=== PATIENT | male | born 1965 ===

== ENCOUNTER → 2025-03-27 09:33 | Outpatient (REF) | payer OTHER, SELFPAY ==
--- OUTSIDE RECORDS SUMMARY | 2025-01-21 09:00 | XMS_ITS ---
Author Name [facility] [facility] [place] Address [address] [place] [address] Care Team Providers Care Bar Manager Name Role Phone CARMEN KAMARA Primary Care Provider Unavailable Insurance Providers: All historical and current Section Date Range: From patient's date of to the date document was created. This section includes the names of all active insurance providers for the patient. Insurance Provider Type of Coverage Plan Name Start of Policy Coverage End of Policy Coverage Group Number Member ID Insurance Provider's Telephone Number Policy Ash's Name Patient's Relationship to Policy Ash [facility] CE ORGANIZAT ION [facility] Dec 04, 2024 [id number] Genia NATARAJAN EORGE PATIENT Selected Encounter This section includes the information on record at [place] for the Encounter. Date/Time Encounter Type Encounter Description Reason Provider Source January 21, 2025 01:00 PM OFFICE O/P NEW [place] 60 MIN PRIMARY CARE/MEDICINE ICD-10-CM R06.00 Dyspnea, unspecified CARMEN KAMARA [facility] Encounter Template Text not used by [place] Assessments - Encounter Diagnoses This section includes the primary and secondary diagnoses documented for the Encounter. Date/Time Primary/Secondary Diagnosis Diagnosis Name Provider Source January 22, 2025 08:54 AM PRIMARY Dyspnea, unspecified BROOKS-BRENDA [facility] January 22, 2025 08:54 AM SECONDARY Athscl heart disease of [place] coronary artery w/o ang pctrs [facility] January 22, 2025 08:54 AM SECONDARY [facility]izziness and g[facility] January 22, 2025 08:54 AM SECONDARY Essential (primary) hypertension [facility] January 22, 2025 08:54 AM SECONDARY Hyperlipidemia, unspecified BROOKS-BRENDA ,[facility] January 22, 2025 08:54 AM SECONDARY Hypertensive heart disease without heart failure BROOKS-BRENDA [facility] Plan of Treatment: Future Appointments (+ 6 months) and Future Tests (+/- 45 days) The Plan of Treatment section includes future care activities for the patient from all [facility]. This section includes future appointments and future orders which are active, pending or scheduled. Future Appointments This section includes appointments that were scheduled to occur 6 months from the date of the Encounter, up to a maximum of 20 appointments. The data comes from all [facility]. Appointment Date/Time Appointment Type Appointme nt Facility Name Feb 25, 2025 09:00 AM AMBULATORY - MEDICINE [facility] Active, Pending, and Scheduled Orders This section includes a listing of several types of active, pending, and scheduled orders, including clinic medications orders, diagnostic test orders, procedure orders and consult orders; where the start date of the order is 45 days before the date of the Encounter or 45 days after the date of theEncounter. The data comes from all [facility]. Test Date/Time Test Type Test Details Facility Name Feb 09, 2025 05:23 PM Consult Order COMM[facility]ITY CARE-CARDIOLOGY Cons Windshield Repair Technician's Choice [facility] Lab Results: +/- 30 days of the encounter This section includes the Chemistry and Hematology Lab Results on record with [place] for the patient. Radiology Reports and Pathology Reports are provided separately, in subsequent sections. Lab Results This section contains the Chemistry/Hematology Results that were resulted 30 days before or 30 daysafter the date of the Encounter. Date/Time Source Result Type Result - Unit Interpretation Reference Range Specimen Type Comment January 21, 2025 03:12 PM [facility] BASIC METABOLIC PANEL (non-fasting) SERUM Spe cimen Type: SERUM No comment entered. Ordering Provider: CARMEN KAMARA Report Released Date/Time: January 21, 2025 02:34 PM Reporting Lab: [address] [address] Performing Lab: [address] [address] UREA NITROGEN 10 mg/dL 8-26 GLUCOSE 80 mg/dL 65-100 SODIUM 138 mmol/L 136-145 POTASSIUM 4.4 mmol/L 3.5-5.1 CHLORIDE 101 mmol/L 98-107 CO2 26 meq/L 22-29 CALCIUM 9.4 mg/dL 8.4-10.2 CREATININE, Serum 1.01 mg/dL 0.72-1.25 eGFR(CKD-EPI 2020) 86 mL/min >60 January 21, 2025 03:12 PM [facility] CBC AND DIFF (AUTO) BLOOD Specimen Type: BLOO D No comment entered. Ordering Provider: CARMEN KAMARA Report Released Date/Time: January 21, 2025 02:34 PM Reporting Lab: [facility] [address] [facility] [address] Performing Lab: [address] [address] WBC 7.58 10*3/uL 4.50-11.00 RBC 5.39 10*6/uL 4.23-5.66 HGB 16.3 g/dL 12.8-17 HCT 47.7 39.2-50.4 MCV 88.5 fL 82-99 MCHC 34.2 g/dL 30.8-35.1 PLT 306 10*3/uL 140-360 MPV 8.8 fL L 9.2-12.4 RDW-CV 13.2 12.0-16.0 MONO, ABS 0.63 10*3/uL 0.30-1.10 MCH 30.2 pg 26.2-32.6 NEUT % 53.7 43.7-75.8 LYMPH % 35.4 14.0-42.3 MONO % 8.3 5.1-13.7 EOS % 1.8 0.4-6.8 BASO % 0.5 0.1-2.0 NEUT, ABS 4.07 10*3/uL 2.20-7.60 LYMPH, ABS 2.68 10*3/uL 1.00-3.20 EOS, ABS 0.14 10*3/uL 0.03-0.44 BASO, ABS 0.04 10*3/uL 0.01-0.13 IMMATURE GRAN % 0.3 0.0-0.7 IMMATURE GRAN, ABS 0.02 10*3/uL 0.00-0.0 6 NRBC % 0.0 0.0-0.0 NRBC, ABS 0.00 10*3/uL 0.00-0.00 January 21, 2025 03:12 PM [facility] LIVER FUNCTION SERUM Specimen Type: SERUM No comment entered. Ordering Provider: CARMEN KAMARA Report Released Date/Time: January 21, 2025 02:34 PM Reporting Lab: [address] [address] Performing Lab: [address] [address] PROTEIN,TOTAL 8.0 g/dL 6.4-8.3 ALBUMIN 4.9 g/dL 3.5-5.2 ALKALINE PHOSPHATASE 89 U/L 40-150 AST 28 U/L 5-34 ALT 46 U/L 0-55 BILIRUBIN, TOTAL 0.6 mg/dL 0.2-1.2 January 21, 2025 03:12 PM [facility] LIPID PANEL, NON FASTING SERUM Specimen Type: SERUM No comment entered. Ordering Provider: CARMEN KAMARA Report Released Date/Time: January 21, 2025 02:34 PM Reporting Lab: [facility] [address] [facility] [address] Performing Lab: [address] [address] CHOLESTEROL 175 mg/dL TRIGLYCERIDE 68 mg/dL 0-150 LDL calculated 123 mg/dL 0-129 CHOL/HDL 4.6 HDL CHOLESTEROL 38 mg/dL L >40 January 21, 2025 03:12 PM [facility] TSH SERUM Specimen Type: SERUM No comment entered. Ordering Provider: CARMEN KAMARA Report Released Date/Time: January 21, 2025 02:34 PM Reporting Lab: [facility] [address] [facility] [address] Performing Lab: [address] [address] TSH 1.02 u[IU]/mL 0.35-4.94 January 21, 2025 03:12 PM [facility] HEMOGLOBIN A1C PANEL BLOOD Specimen Type: BLO OD Comment: Values obtained from A1C measurements can vary. For atypical A1C assays, a reported value of 7.0 could actually be between 6.72 and 7.28 if measured by a reference method. A reported value of 9.0 could actually be between 8.73 and 9.27. Ref: http://www.ngsp.org/CAPdata.asp Ordering Provider: CARMEN KAMARA Report Released Date/Time: January 21, 2025 02:34 PM Reporting Lab: [facility] [address] [facility] [address] Performing Lab: [address] [address] HEMOGLOBIN A1C 5.6 4.0-5.6 Vital Signs: All taken on the encounter date This section contains inpatient and outpatient Vital Signs collected on the date of the Encounter. Date/Time Temperature Pulse Blood Pressure Respiratory Rate SP02 Pain Height Weight Body Mass Index Source January 21, 2025 12:35 PM 97.8 59 148/85 20 99 3 192 28 [facility] Social History: Smoking Status (Most current) and Tobacco Use (All prior to encounter date) This section includes the most current, and the historical, smoking and tobacco- related health factors from the [place] facility where the Encounter took place. Current Smoking Status This section includes the most current smoking, or tobacco-related health factor, from the [place] facility where the Encounter took place. Date/Time Current Smoking Status Comment Facil ity January 20, 2025 02:34 PM VA-TOBACCO USE FOR [facility]ST[facility]NA CIGARETTES [facility] Tobacco Use History This section includes a history of the smoking, or tobacco-related health factors, that were collected on or before the date of the Encounter. The data comes from the [place] facility where the Encounter took place. Date/Time Smoking Status/Tobacco Use Comment F acility January 20, 2025 02:34 PM VA-TOBACCO SCREEN FOLLOW-UP [facility] [place] [facility] January 20, 2025 02:34 PM VA-TOBACCO USE ADVICE [facility] [place] [facility] January 20, 2025 02:34 PM VA-TOBACCO USE MINE SURVEYOR NO [facility] [place] [facility] January 20, 2025 02:34 PM VA-TOBACCO USE FOR CRISTIANA CIGARETTES [facility] [place] [facility] January 20, 2025 02:34 PM VA-TOBACCO USE MED NO [facility] [place] [facility] Jul 07, 2020 09:00 AM VA-TOBACCO FORMER USER [facility] [place] [facility] Jul 07, 2020 09:00 AM VA-TOBACCO QUIT 5 TO < 15 YRS [facility] [place] [facility] Jul 04, 2019 12:10 PM VA-TOBACCO FORMER USER [facility] [place] [facility] Jul 04, 2019 12:10 PM VA-TOBACCO QUIT 1 TO < 5 YRS [facility] [place] [facility] May 07, 2018 08:28 AM QUIT TOBACCO USE 1 -7 YEARS AGO [facility] [place] [facility] Oct 23, 2017 08:50 AM QUIT TOBACCO USE 1 -7 YEARS AGO [facility] [place] [facility] Apr 20, 2017 09:16 AM QUIT TOBACCO USE 1 -7 YEARS AGO [facility] [place] [facility] Jul 20, 2016 11:07 AM QUIT TOBACCO USE 1 -7 YEARS AGO [facility] [employer] Encounter Notes: All associated encounter notes This section contains the clinical notes associated to the Encounter. Date/Time Encounter Note(s) Provider Source January 22, 2025 12:50 PM LETTERS: LOCAL TITLE: PATIENT LETTER (T) STANDARD TITLE: LETTERS DATE OF NOTE: JANUARY 22, 2025@12:50 ENTRY DATE: JANUARY 22, 2025@12:50:37 AUTHOR: MARY KAMARA COSIGNER: URGENCY: STATUS: COMPLETED DEPARTMENT OF [facility] Toll Free Number Primary Care Telephone Assistance can be reached at extension [phone] [facility] scheduling can be reached at extension [phone] [facility] scheduling can be reached at ext [phone] [facility] [address], [place], [address] Dear , This letter is to inform you that your recent lab results have returned overall within normal limits. Your CBC (complete blood count) shows no anemia or abnromalities. Your electrolytes, kidney, and liver function is normal. Your thyroid function is in normal range. Your cholesterol shows that your LDL ( bad cholesterol ) is 123. The goal for your LDL is less than 70. Please ensure that you are taking your atorvastatin 80 mg daily as directed. IF YOU ARE taking it consistently, I would recommend switching you to another, higher potency statin instead. We can discuss further at your next appt in February Please call for any questions or problems and keep your next appointment, as scheduled. Carmen Kamara PA-C Sincerely, Your Primary Care Team [facility] [address] [facility] [address] [place] [address] [place] [address] [phone] [facility] [address] [place] [address] [place] [address] [phone] [facility] [address] [facility] [place] [id number] [place] [address] MARY KAMARA [facility] January 21, 2025 03:20 PM CARDIOLOGY DIAGNOSTIC STUDY CONSULT: LOCAL TITLE: CONSULT REPORT/EKG STANDARD TITLE: CARDIOLOGY DIAGNOSTIC STUDY CONSULT DATE OF NOTE: JANUARY 21, 2025@15:20 ENTRY DATE: JANUARY 21, 2025@15:20:27 AUTHOR: MIQUEL RAMÍREZ EXP COSIGNER: URGENCY: STATUS: COMPLETED EKG tracing was performed for diagnosis of Shortness of breath ordered by Carmen Kamara PA-C. /krystian/ MIQUEL RAMÍREZ, MSN, RN, CNL PRIMARY CARE TEAM NURSE Signed: 01/21/2025 15:21 MIQUEL RAMÍREZ [facility] January 21, 2025 01:30 PM H & P NOTE: LOCAL TITLE: 10-10/PHYSICIAN/PA STANDARD TITLE: H & P NOTE DATE OF NOTE: JANUARY 21, 2025@13:30 ENTRY DATE: JANUARY 21, 2025@13:30:17 AUTHOR: MARY KAMARA EXP COSIGNER: URGENCY: STATUS: COMPLETED DEISY NATARAJAN is a 59 year old WHITE MALE who is being seen today in primary care: NEW PATIENT ==== CARE TEAM ==== Community Primary Care Provider: [facility] Specialists: Community Specialists: ==== HISTORY ==== PERIOD OF SERVICE - [place] [facility] SERVICE CONNECTED % - NONE FOUND Period of Service: [employer] Branch of Service: [facility] 03/24/1989 TO 07/26/1996 [employer] 06/28/1984 TO 07/02/1988 ==== HISTORY OF PRESENT ILLNESS ==== Patient presents today to establish care. 59 yo M with known CAD, HTN, HLD, ED, renal stones, & cervical DJD. DJD. No physical in several years. Prev pt at [facility]. Last labs done 2? yrs ago and worried about his heart dz. No Cards fu in years. -concerns: dizziness/vertigo, sometimes assoc with nausea; seen at [facility] and has had cerumen flushed; now doing this at home. Recently had an episode of nausea that persisted. episodes are transient . IN past few weeks, felt more SOB with normal exertion and going up stairs. More easily winded. Never has chest pain. Sxs resolve with rest. No syncope or palps. Started checking BP at home a few times, typically 150s/80-90s. HTN initally found during workup for angina about 10 yrs ago. [facility] in [place]: Cardiac catheterization done 2015; found no obstr coronary disease. Last saw Cardiol here at [place] in Oct 2017. CARDIAC HX: 2016 had chest pain, Coronary CT 12/2015 : extensive obstr two vessel (LAD, RCA) and textensive coronary atherosclerosis. TTE was normal . Started on ASA, hi intens statin and BB. And tingling in the arms Has had PT for L shoulder in the past. Has some aching and numbness in both arms. Trggered by flexion of neck. Relieved by movement. No weakness or dropping spells. denies: signif loss/gain in weight, chills, severe fatigue, difficulty swallowing, ear pain, cough, syncope, chest pain, palpiations, WADE, abdominal pain, new urinary or bowel changes, new rashes or skin lesions. ==== RELEVANT PAST MEDICAL HISTORY ==== Active problems - Computerized Problem List is the source for the followin. Ureterolithiasis 2. Erectile dysfunction 3. Hyperlipidemia 4. Cervical spondylosis with radiculopathy 5. Low back pain 6. Neck ache 7. Adjustment disorder with depressed mood 8. Polyp of colon biopsy showed polypoid fragment with small benign lymphoid aggregates 9. Coronary artery disease 10. BP - High blood pressure uncontrolled - for self-monitoring 11. Dyslipidemia ==== PAST SURGICAL HISTORY ==== None ==== FAMILY HISTORY ==== Mother: D estranged, (hx IVDU) Father: DM2 PGF: CVA Siblings: ==== SOCIAL HISTORY ==== Background: born and raised in [place] Marital Status: Children: biol sons, 2 step dtr Lives with: and stepdtr Employment Status: Manufacturing/ [place] Alcohol Use: rare Tobacco Use: former cigs (25 pack yr); quit 2015 Drug Use: MJ, daily Mobility: Full Exercise: active, no recent formal exercise ==== ALLERGIES ==== [facility] [place] [facility] ==== MEDICATIONS ==== ==== REVIEW OF SYMPTOMS ==== see HPI ==== PHYSICAL EXAM ==== Vitals: 97.8 F [36.6 C] (01/21/2025 12:35) 59 (01/21/2025 12:35) 20 (01/21/2025 12:35) 148/85 (01/21/2025 12:35) 3 (01/21/2025 12:35) 69 in [175.3 cm] (11/04/2018 09:17) 192 lb [87.09 kg] (01/21/2025 12:35) BMI: 28.4 Exam: Gen.: Alert, no acute distress, sitting comfortably. Eyes: Noninjected. No facial swelling or asymmetry. No icterus. HEENT: Normocephalic, atraumatic. No nasal drainage. Hearing grossly intact Neck: Good range of motion/No masses CV: RRR, No Murmurs. No carotid bruits. No LE Edema Respiratory: No conversational dyspnea. No audible wheezing stridor or cough. Skin: No obvious rashes. Neuro: Cranial nerves II-XII grossly intact Psych: Normal affect, cooperative. Intact judgment and insight. A&O x3. ==== RECENT LABS ==== Labs: = HEMOGLOBIN A1C TREND No data available = CBC TREND Collection DT Spec WBC RBC HGB HCT MCV MCH PLT 07/17/2019 13:59 BLOOD 7.75 5.33 16.1 48.1 90.2 30.2 359 10/29/2018 08:03 BLOOD 8.13 5.28 15.8 47.6 90.2 29.9 359 10/05/2017 08:07 BLOOD 7.48 5.05 15.0 45.3 89.7 29.7 329 01/17/2017 09:33 BLOOD 7.19 5.17 15.2 46.2 89.4 29.4 308 08/02/2016 08:45 BLOOD 7.17 5.27 15.5 46.5 88.2 29.4 315 = CHEM 7 TREND LAB CUMULATIVE SELECTED Collection DT Spec GLUCOSE BUN CREATIN Sodium K+/Pot CL CO2 07/17/2019 13:59 SERUM 86 9 1.05 140 4.5 104 29 10/29/2018 08:03 SERUM 102 H 9 0.97 142 4.7 103 30 10/05/2017 08:07 SERUM 99 12 1.03 141 4.8 106 27 01/17/2017 09:33 SERUM 107 H 11 0.95 143 4.9 105 29 08/02/2016 08:45 SERUM 98 10 0.93 140 4.7 106 27 LAB CUMULATIVE SELECTED 2 No selection items chosen for this component. CHEM 7 Results Collection DT Spec Sodium K+/Pot CL CO2 GLUCOSE BUN 07/17/2019 13:59 SERUM 140 4.5 104 29 86 9 10/29/2018 08:03 SERUM 142 4.7 103 30 102 H 9 10/05/2017 08:07 SERUM 141 4.8 106 27 99 12 01/17/2017 09:33 SERUM 143 4.9 105 29 107 H 11 08/02/2016 08:45 SERUM 140 4.7 106 27 98 10 = LIPID PANEL TREND Collection DT Spec CHOL HDL CHO/HDL LDL-c TRIG 07/17/2019 13:59 SERUM 174 40 4.4 124 50 10/29/2018 08:03 SERUM 165 36 L 4.6 116 63 10/05/2017 08:07 SERUM 140 30 L 4.7 93 83 01/17/2017 09:33 SERUM 138 34 L 4.1 86 92 08/02/2016 08:45 SERUM 152 34 L 4.5 100 92 = = THYROID PANEL Collection DT Specimen Test Name Result Units Ref Range 10/05/2017 08:07 SERUM TSH 1.55 uIU/mL 0.35 - 5.00 = PSA No data available for: PSA = SrCr (last 6 weeks): CREATININE-EGFR - NONE FOUND CRCL IBW: CrCl(est): 76.7 mL/min (Creat:1.05 07/17/19) CRCL ACT: No Creat CRCL ADJ: 76.7 mL/min (07/17/19) \ ==== ASSESSMENT AND PLAN ==== Recent dyspnea on exertion: atypical for him. Hx CAD. reports he IS taking ASA 81 mg daily; will add to med list. No cards FU since 2018 EKG: no acute ST-T changes. Refer for EST. Will need FU with Cards after. Red flags to seek ED eval reviewed, vet. agrees Labs today HTN: NOT at goal. Is resistant to increasing lisinopril Rec short term FU 6-8 wks, will stress importance of tight BP control. FU 6-8 wks , will likely need additional meds Paresthesias of UE's: related to neck position Declines PT for now, helpful in past, but short term. Vertigo: comes and goes; has meclizine and ondansetron to use PRN. Discussed nature of inner ear dz Cerumen impaction: LEFT ear He will use softening drops and try flushing at home. On this date of the encounter, I spent 60 minutes on some or all of the following: chart review, history, physical examination, treatment planning, education and counseling of the patient/family/customer care voice consultant, placing orders, communicating with other health care providers and documentation in the electronic health record. ==== HEALTH MAINTENANCE ==== Colonoscopy : Polyp of colon - [facility]- 2021 Tetanus: Pneumonia Vaccine: Flu Vaccine: due yearly Covid Vaccine: due yearly ==== FOLLOW UP ==== VISIT TYPE: FU, review EST, HTN Upcoming Appointments: /krystian/ CARMEN KAMARA PA-C PA-C Signed: 01/22/2025 08:54 MARY KAMARA CNTRDanae [facility]
--- NOTE | ~2025-03-27 | NM_ITS ---
EXERCISE MYOCARDIAL PERFUSION STUDY INDICATION: Shortness of breath. Prior CAD to evaluate for myocardial ischemia TECHNIQUE: The patient was brought in for an exercise perfusion study on 03/27/2025. Patient performed exercise as per Nikita protocol and was injected 25 mCi of sestamibi once target heart rate was achieved. Images were obtained using the SPECT gamma camera interlaced with the gating device. Images were obtained in supine position. Resting perfusion study was performed on 03/30/2025. Patient was administered 25 mCi of sestamibi intravenously at rest. Images were then obtained in supine position. Images obtained without without CT attenuation. Total DLP 86 mGy-cm. Images were processed with the software and compared side to side in short axis, horizontal long axis and vertical long axis views. FINDINGS: Raw images were reviewed The stress perfusion study showed nonattenuated images show normal uptake of radiotracer in all segments of the LV myocardium. Attenuated corrected images show thinning of the apex of the LV myocardium.. The gated study shows normal LV systolic function with calculated LVEF of 55%. LV cavity is mildly dilated in size. The gated study shows normal systolic wall thickening and contraction of segments. Resting images was suboptimal due to intense subdiaphragmatic uptake interfering with inferior wall uptake. Resting study shows nonattenuated images show mildly reduced uptake in the basal and mid inferior as well as the apex of the LV myocardium. Attenuated corrected images show moderately reduced uptake in the apex and mildly reduced uptake in the distal anterior wall of the LV myocardium. Gating at rest reveals normal systolic wall motion with ejection fraction at 63%. The findings are consistent with normal myocardial perfusion on stress images. NM/NM peri perf SPECT rest & str IMPRESSION: 1. Myocardial perfusion imaging study shows normal myocardial perfusion. 2. Gated LVEF is 55%. 3. Transient ischemic dilatation not present. EKG revealed negative for ischemia. Electronically signed by: Danny Edwards MD 03/31/2025 10:53 AM EDT
--- NOTE | 2025-03-27 09:42 | CA_ITS ---
Acquisition Time: 2025-03-27 10:06:03 Total Exercise Time: 00:09:35 Test Indications: SOB Medications: SEE H&P Protocol: JULIAN Max HR: 144 BPM 88% of Pred: 162 BPM Max BP: 160/72 mmHG Max Work Load: 11.0 METS Exercise stress test with exercise 9 mins 35 secs of Julian Protocol, achieving 88% MPHR, with reports of SOB, no chest pain, without any arrythmias, with normotensive response to exercise. Without any EKG changes meeting criteria for ischemia. In recovery, breathing slowly improving to baseline. Nuclear images pending. Test reviewed with Dr. Caballero. Referred By: Carmen Valiente Electronically Signed By: Otis Patrick
--- OUTSIDE RECORDS SUMMARY | 2025-03-27 09:47 | XMS_ITS | Encounter Summary ---
Author Organization [facility] Address [address] [place] [phone] Phone Care Team Providers Care State Farm Agent Name Role Phone Unknown, Unknown MD Primary Care Provider Maria De Jesus ron Pcp, Unknown Primary Care Provider Unavailabl e Encounter Details Date Type Department Care Team (Late st Contact Info) Description 08/05/2020 Ancillary Orders Virtual Department [address] [place] [id number] Selina Gonzalez, BLAS [address] [place] [phone] [email or web address] Cervical spondylosis without myelopathy; Thoracic spondylosis without myelopathy Social History Tobacco Use Types Packs/Day Years Used Date Smoking Tobacco: Never Assessed Sex and Gender Information Value Date Recorded Sex Assigned at Not on file Legal Sex Male 11:48 AM EDT Gender Identity Not on file Sexual Orientation Not on file documented as of this encounter Plan of Treatment Not on file documented as of this encounter Results * XR THORACIC SPINE 3 VIEW (08/06/2020 11:58 AM EST) Anatomical Region Laterality Modality T-spine Computed Radiogr aphy 08/06/2020 1:27 PM EST Impressions 08/06/2020 1:28 PM EST Mild multilevel degenerative changes. Narrative 08/06/2020 1:28 PM EST EXAM: XR THORACIC SPINE 3 VIEW COMPARISON: None. FINDINGS: No significant subluxations. The visualized vertebral body heights appear maintained. Small marginal osteophytes at multiple levels. The joint spaces appear preserved. Visualized portions of the lungs appear clear. Procedure Note Leon Carlos MD - 08/06/2020 EXAM: XR THORACIC SPINE 3 VIEW COMPARISON: None. FINDINGS: No significant subluxations. The visualized vertebral body heights appearmaintained. Small marginal osteophytes at multiple levels. The jointspaces appear preserved. Visualized portions of the lungs appear clear. IMPRESSION: Mild multilevel degenerative changes. us Selina Mark Gonzalez NP IMG XR SPINE Final Result * XR CERVICAL SPINE 4-5 VIEWS (08/06/2020 11:57 AM EST) Anatomical Region Laterality Modality C-spine Computed Radiogr aphy 08/06/2020 1:24 PM EST Impressions 08/06/2020 1:27 PM EST Degenerative changes, more prominent at C5-C6 and C6-C7. Narrative 08/06/2020 1:27 PM EST EXAM: XR CERVICAL SPINE 4-5 VIEWS COMPARISON: None FINDINGS: Straightening of the normal cervical lordosis. Vertebral body heights are maintained. Disc space narrowing and marginal osteophytes are more prominent at C5-C6 and C6-C7. Neuroforaminal stenosis is more prominent at C5-C6, C6-C7 and C7-T1 on the left side and C5-C6 and C6-C7 on the right. Odontoid process is well aligned with the lateral masses of C1. Prevertebral soft tissues appear unremarkable. Procedure Note Leon Carlos MD - 08/06/2020 EXAM: XR CERVICAL SPINE 4-5 VIEWS COMPARISON: None FINDINGS: Straightening of the normal cervical lordosis. Vertebral body heights aremaintained. Disc space narrowing and marginal osteophytes are moreprominent at C5-C6 and C6- C7. Neuroforaminal stenosis is more prominent atC5-C6, C6-C7 and C7-T1 on the left side and C5-C6 and C6-C7 on the right.Odontoid process is well aligned with the lateral masses of C1.Prevertebral soft tissues appear unremarkable. IMPRESSION: Degenerative changes, more prominent at C5-C6 and C6-C7. us Selina Gonzalez UNIT MANAGER [employer] IMG XR SPINE Final Result documented in this encounter Visit Diagnoses Diagnosis Cervical spondylosis without myelopathy Thoracic spondylosis without myelopathy Cervical spondylosis without myelopathy Thoracic spondylosis without myelopathy documented in this encounter Care Teams State Farm Agent Relationship Specialty Start Date End Date Unknown, Unknown, MD PCP - General 08/05/20 08/05/20 Pcp, Unknown PCP - General 08/06/20 documented as of this encounter Additional Source Comments The information contained in this document represents components of the legal health record. It is not the complete legal health record.[facility]
== END ==
LOC: HO.CARD 09:33
PROVIDERS: PCP Physician Assistant; Visit Provider Physician Assistant
DX: R06.02 Shortness of breath (principal)
CPT/HCPCS: 78452; 93017; A9500

== ENCOUNTER → 2025-03-27 09:42 | Outpatient (BNV) | payer OTHER, SELFPAY | PROVIDERS: PCP Physician Assistant | DX: R06.02 Shortness of breath (principal) | CPT/HCPCS: 78452; 93016; 93018 ==

== ENCOUNTER 2025-06-20 19:51 | Emergency (ER) | payer OTHER, SELFPAY ==
[2025-06-20 19:57] VITALS: BP 193/80; PULSE 69; RESP 16; TEMP 36.6; O2SAT 97; BMI 26.6
--- NOTE | 2025-06-20 20:00 | ED_ITS ---
HPI - General Adult General Chief complaint: General Medical Stated complaint: blood pressure 174/107 and 190/101 Time Seen by Provider: 06/21/25 00:49 Source: patient Mode of arrival: ambulatory Limitations: no limitations History of Present Illness ED Provider: Isaac JORDAN HPI narrative: The patient is a 60-year-old male with a history of hypertension and vertigo presenting to the ED for evaluation of elevated blood pressure. Patient reports today he was feeling ?off?, but denies overt chest pain, headache, focal neurological deficit, vision changes, nausea, vomiting, fever/chills, or other acute focal somatic complaint. The patient reports on he experienced an episode of dizziness consistent with vertigo which resolved after taking meclizine, and has not reoccurred. The patient also reports he is currently taking amoxicillin for a suspected sinusitis. The patient reports compliance with his antihypertensive medications, denies any missed doses. Denies any recent medication changes. The patient reports he was sent for a stress test and echocardiogram by his PCP in April of this year, which was negative for any ischemic pathology. Related Data Allergies Allergy/AdvReac Type Severity Reaction Status Date / Time No Known Allergies Allergy Verified 06/20/25 20:03 Review of Systems 2 Review of Systems: Yes all other systems are reviewed and are negative PMFSH Social History Social History Advance Directives: No Advance Directives Information Provided: Yes Do you have a plan to hurt others: No Plan Physical Exam ED Vital Signs: Vital Signs - 24 hr 06/20/25 19:57 06/21/25 01:12 Temperature 97.8 F 97.9 F Pulse Rate 69 55 Respiratory Rate 16 18 Blood Pressure 193/80 H 149/80 H Pulse Oximetry 97 99 Oxygen Delivery Method Room Air Room Air BMI result Body Mass Index 26.6 CONSTITUTIONAL: The patient appears non-toxic, well nourished and in no acute distress. Vital signs as documented. HEAD: Atraumatic, normocephalic. EYES: EOMs intact, pupils equal and appropriately reactive to light, conjunctiva clear, no exudate. ENT: Nares patent, no discharge. Airway patent, no audible stridor, visible mucosa is pink and moist without noted lesions. NECK: Trachea is midline, no obvious masses or gross abnormalities. CHEST: Symmetric movement, normal appearance. LUNGS: LS present and CTAB, no w/r/r. Non-labored work of breathing. CARDIAC: Regular Rhythm, S1/S2 appreciated, no murmurs, rubs or gallops. ABDOMEN: Abdomen soft and non-tender x4 quadrants, no palpable masses or organomegaly. : Deferred. EXTREMITIES: Normal tone, moves all extremities spontaneously without reported pain. No obvious acute injury or deformity noted. NEURO: Alert and oriented x3, CN II-XII intact. Cerebellar Functioning intact. Strength 5/5 x4. No sensory or motor deficits. Speech clear and appropriate. PSYCH: normal affect, appropriate eye contact, fluid speech, with appropriate response to questioning. No reported suicidality or homicidality. SKIN: Warm, dry, color appropriate, normal turgor. No rashes noted. NIH Stroke Scale Level of Consciousness: Alert Level of Consciousness Questions: Answers both questions correctly Level of Consciousness Commands: Performs both tasks correctly Best Gaze: Normal Visual: No visual loss Facial Palsy: Normal Motor Arm (Right): No drift Motor Arm (Left): No drift Motor Leg (Right): No drift Motor Leg (Left): No drift Limb Ataxia: Absent Sensory: Normal Best Language: No aphasia Dysarthia: Normal Extinction and Inattention: No abnormality Score: 0 Course Course Course Narrative: This is a rapid medical exam performed by Melanie Luna NP: Additional HPI, ROS, PE not included below will be deferred to primary provider. Patient is a 60y/o M presenting to the ED with complaint of high BP readings at home. Has recently felt fatigued, tight muscles in his neck, toothache. Denies headaches, vision changes, chest pain, dyspnea, dizziness. Readings at home 190 systolic, >100 diastolic. Currently on lisinopril, taking as prescribed. BP 200/90 in triage. Plan: EKG, labs Medical Decision Making Medical Decision Making MDM Narrative: 2:09 AM 06/21/2025 (Madelyn JORDAN): The patient is a 60-year-old male with a history of hypertension and vertigo presenting to the ED for evaluation of elevated blood pressure. Patient reports today he was feeling ?off?, but denies overt chest pain, headache, focal neurological deficit, vision changes, nausea, vomiting, fever/chills, or other acute focal somatic complaint. The patient reports on he experienced an episode of dizziness consistent with vertigo which resolved after taking meclizine, and has not reoccurred. The patient also reports he is currently taking amoxicillin for a suspected sinusitis. The patient reports compliance with his antihypertensive medications, denies any missed doses. Denies any recent medication changes. The patient reports he was sent for a stress test and echocardiogram by his PCP in April of this year, which was negative for any ischemic pathology. On exam the patient has no acute findings, neuro exam is benign. The patient's blood pressure has returned to normal while in the ED and patient reports his symptoms have dramatically improved. The patient's laboratory evaluation shows no leukocytosis, anemia, electrolyte abnormality or BONY. Troponin is negative. The patient's EKG is nonischemic, there is evidence of an isolated Q-wave in lead 3, comparison to EKG from the patient's stress test shows this is old and unchanged, no other significant morphology changes. At this time the patient does not appear to be suffering from malignant hypertension and does not require emergent intervention. Patient will be discharged home to follow up with his PCP and instructed to continue home medications as directed until instructed otherwise by PCP. Lab Data 06/20/25 20:31 06/20/25 20:31 Labs: Lab Results 06/20/25 Range/Units 20:31 WBC 9.1 (4.8-10.8) X10*3/uL RBC 5.32 (4.60-5.80) X10*6/uL Hgb 16.1 (14.0-18.0) g/dl Hct 46.5 (42.0-52.0) % MCV 87.4 (80.0-98.0) fL MCH 30.3 (27.0-33.0) pg MCHC 34.6 (31.0-36.0) g/dl RDW 13.2 (11.0-16.0) % Plt Count 330 (160-400) X10*3/uL MPV 8.8 L (9.4-12.4) fL Immature Gran % (Auto) 0.2 (0.0-0.4) % Neut % (Auto) 56.7 (45-73) % Lymph % (Auto) 30.2 (20-40) % [place] % (Auto) 8.3 (2-11) % Eos % (Auto) 3.9 (0-4) % Baso % (Auto) 0.7 (0-2) % Lymph # (Auto) 2.7 (1.2-4.9) X10*3/uL [place] # (Auto) 0.8 (0.1-1.2) X10*3/uL Eos # (Auto) 0.4 (0.0-0.4) X10*3/uL Baso # (Auto) 0.1 (0.0-0.2) X10*3/uL Abs Immat Gran (auto) 0.02 (0.00-0.03) X10*3/uL Absolute Neuts (auto) 5.1 (2.0-8.3) x10*3/uL Absolute Nucleated RBC 0.000 (0.0-0.012) X10*3/uL Nucleated RBC % (auto) 0.0 (0.0-0.2) /100WBC Sodium 140 (135-145) mmol/L Potassium 4.2 (3.3-5.1) mmol/L Chloride 108 (96-108) mmol/L Carbon Dioxide 20 L (22-29) mmol/L Anion Gap 16 (12-20) BUN 15 (9-16) mg/dL Creatinine 1.14 (0.5-1.4) mg/dL Estim Creat Clear Calc 69.7 Estimated GFR > 60 Random Glucose 110 (60-115) mg/dL Calcium 8.7 (8.4-10.2) mg/dL Total Bilirubin 0.4 (0.0-1.0) mg/dL AST 36 (5-37) U/L ALT 42 H (0-40) U/L Alkaline Phosphatase 79 (39-117) U/L Troponin I High Sens < 2.7 (<3.5-35.0) ng/L Total Protein 7.4 (6.5-8.0) g/dL Albumin 4.4 (3.5-5.0) g/dL Discharge Plan Discharge Clinical Impression: Hypertension Qualifiers: Hypertension type: unspecified Qualified Code(s): I10 - Essential (primary) hypertension Patient Disposition: Home, Self-Care Instructions: Chronic Hypertension (ED), Hypertension (ED) Additional Instructions: Thank you for choosing [facility]'s Emergency Department for your care today. Thankfully your laboratory evaluation, EKG, and exam today are very reassuring. There was no evidence of any end-organ damage to your brain, kidneys, or heart as a result of your high blood pressure earlier today. At this time there is no indication for admission to the hospital or continued ED observation, and it is safe to discharge you home. The exact cause of your high blood pressure is not entirely clear, however thankfully seeing as your exam and workup is reassuring there was no indication for emergent lowering of your blood pressure or immediate adjustment of your home blood pressure medication. Please follow up with the your primary care provider to discuss your elevated blood pressure today and repeat blood pressure readings to identify any need for nonemergent adjustment of your blood pressure medication. Please continue taking your prescribed medications as directed. Please follow up with your primary care physician for re-evaluation, additional management of your symptoms, and continued preventative care. If you do not have a primary care physician, please call the [facility] at [phone] to establish a new primary care physician. While waiting to establish your new primary care physician, you can call our Walk-in Care Clinic at [phone] for non-emergency needs. Please return to the emergency department if you develop a severe or sudden change in your symptoms, a fever over 100.4 that does not improve with Tylenol or Ibuprofen, recurrent vomiting, or any other new or worsening symptoms or concerns. Referrals: Carmen Diaz PA-C [Primary Care Provider, Internal Medicine] Clinical Impression: Hypertension Print Language: Arabic
--- NOTE | 2025-06-20 20:03 | ECG_ITS ---
Test Reason : HTN Blood Pressure : */* mmHG Vent. Rate : 64 BPM Atrial Rate : 64 BPM P-R Int : 132 ms QRS Dur : 90 ms QT Int : 386 ms P-R-T Axes : 24 -1 15 degrees QTcB Int : 398 ms Normal sinus rhythm Inferior infarct , age undetermined Abnormal ECG No previous ECGs available Referred By: Shoshana Luna Electronically Signed By: Bal Caballero
[2025-06-20 20:37] LABS: MANUAL DIFF FLAG NO
[2025-06-20 20:39] LABS: Hematocrit 46.5 % (42.0-52.0); Hemoglobin 16.1 g/dl (14.0-18.0); Imm Gran Abs Auto 0.02 X10*3/uL (0.00-0.03); Imm Gran Pct Auto 0.2 % (0.0-0.4); Lymphocytes Absolute Auto 2.7 X10*3/uL (1.2-4.9); Mean Corpuscular HGB Conc 34.6 g/dl (31.0-36.0); Mean Corpuscular Hemoglobin 30.3 pg (27.0-33.0); Mean Corpuscular Volume 87.4 fL (80.0-98.0); NRBC Abs Auto 0.000 X10*3/uL (0.0-0.012); NRBC Pct Auto 0.0 /100WBC (0.0-0.2); Platelet Count 330 X10*3/uL (160-400); Red Blood Count 5.32 X10*6/uL (4.60-5.80); White Blood Count 9.1 X10*3/uL (4.8-10.8)
[2025-06-20 20:56] LABS: Alanine Aminotransferase 42 U/L (0-40); Albumin Level 4.4 g/dL (3.5-5.0); Alkaline Phosphatase 79 U/L (39-117); Anion Gap 16 (12-20); Aspartate Amino Transferase 36 U/L (5-37); Blood Urea Nitrogen 15 mg/dL (9-16); Calcium 8.7 mg/dL (8.4-10.2); Carbon Dioxide 20 mmol/L (22-29); Chloride 108 mmol/L (96-108); Creatinine Clr Calc Pharmacy 69.7; Estimated Glomerular Filt Rate > 60; Potassium 4.2 mmol/L (3.3-5.1); Sodium 140 mmol/L (135-145); Total Protein 7.4 g/dL (6.5-8.0)
[2025-06-20 21:03] LABS: Troponin-I High Sensitivity < 2.7 ng/L (<3.5-35.0)
--- OUTSIDE RECORDS SUMMARY | 2025-06-21 00:31 | XMS_ITS | Clinical Summary ---
Author Organization [facility] Address [address] [place], [place] [id number] Phone Care Team Providers Care Critical Systems Technician Name Role Phone Pcp, Unknown Primary Care Provider Unavailabl e Social History Tobacco Use Types Packs/Day Years Used Date Smoking Tobacco: Never Assessed Education Answer Date Recorded Are you interested in more education? Not on shanti e 12/29/2022 Are you concerned about learning? Not on file 12/29/2022 No 12/29/2022 No 12/29/2022 Digital Access Answer Date Recorded No 01/27/2023 No 01/27/2023 No 01/27/2023 Reliable internet access at home? Not on file 01/27/2023 Device with a working camera? Not on file Sex and Gender Information Value Date Recorded Sex Assigned at Not on file Legal Sex Male 11:48 AM EDT Gender Identity Not on file Sexual Orientation Not on file Plan of Treatment Health Maintenance Due Date Last Done Comments Adult Td,Tdap Booster 1966 LIPID PANEL 1966 DEPRESSION SCREENING 1978 SMOKING Hx and SMOKELESS TOB ACCO SCREENING 1979 HEPATITIS C SCREENING 1984 HIV ONE-TIME SCREENING (18-6 5 YEARS) 1984 COLOGUARD 2011 COLONOSCOPY 2011 COLORECTAL CANCER SCREENING 2011 FIT TEST 2011 FOBT 2011 SIGMOIDOSCOPY 2011 VIRTUAL COLONOSCOPY 2011 PNEUMOCOCCAL VACCINES (50+ y ears) (1 of 1 - PCV) 2016 ZOSTER VACCINES (1 of 2) 2016 INFLUENZA VACCINE (#1) 2025 COVID-19 VACCINE (1 - 2024-2 6 season) 2025 RSV VACCINE (1 - 1-dose 75+ series) 2041 HEPATITIS A VACCINES Aged Out No long er eligible based on patient's age to complete this topic HIB VACCINES Aged Out No longer eligi ble based on patient's age to complete this topic MENINGOCOCCAL VACCINES (ACWY) Aged Out No longer eligible based on patient's age to complete this topic MENINGOCOCCAL VACCINES (B) Aged Out N o longer eligible based on patient's age to complete this topic Medical Devices Not on file Insurance S S S S S S S S S Member Subscriber Plan / Payer (Ef fective 2020-Present) Name:Carlo Oro Relation to Subscriber:Self Name:Carlo Oro Payer ID:Not on file Type:PPO Address: [place] [phone] Care Teams Critical Systems Technician Relationship Specialty Start Date End Date Pcp, Unknown PCP - General 08/06/20 Additional Source Comments The information contained in this document represents components of the legal health record. It is not the complete legal health record.[facility]
--- OUTSIDE RECORDS SUMMARY | 2025-06-21 00:31 | XMS_ITS | Encounter Summary ---
Author Organization [facility] Address [address] [place] [phone] Phone Care Team Providers Care Finisher Hot Strip Name Role Phone Unknown, Unknown MD Primary Care Provider Maria De Jesus ron Pcp, Unknown Primary Care Provider Unavailabl e Encounter Details Date Type Department Care Team (Late st Contact Info) Description 08/05/2020 Ancillary Orders Virtual Department [address] [place] [id number] Selina Gonzalez, BLAS [address] [place] [phone] [email or web address] Cervical spondylosis without myelopathy; Thoracic spondylosis without [...] at C5-C6 and C6-C7. us Selina Gonzalez BOAT OPERATOR IMG XR SPINE Final Result documented in this encounter Visit Diagnoses Diagnosis Cervical spondylosis without myelopathy Thoracic spondylosis without myelopathy Cervical spondylosis without myelopathy Thoracic spondylosis without myelopathy documented in this encounter Care Teams Finisher [employer] Relationship Specialty Start Date End Date Unknown, Unknown, MD PCP - General 08/05/20 08/05/20 Pcp, Unknown PCP - General 08/06/20 documented as of this encounter Additional Source Comments The information contained in this document represents components of the legal health record. It is not the complete legal health record.[facility]
[2025-06-21 01:12] VITALS: BP 149/80; PULSE 55; RESP 18; TEMP 36.6; O2SAT 99
[2025-06-21 02:28] VITALS: BP 147/87; PULSE 55; RESP 16; TEMP 36.6; O2SAT 98
== END 2025-06-21 02:29 | disposition home or self-care (01) ==
PROVIDERS: Registered Nurse Emergency; Emergency Provider Emergency Medicine; PCP Physician Assistant
DX: R42 Dizziness and giddiness (principal); I10 Essential (primary) hypertension; R94.31 Abnormal electrocardiogram [ECG] [EKG]
CPT/HCPCS: 36415; 80053; 84484; 85025; 93005; 99283; 99284

== ENCOUNTER → 2025-06-20 20:03 | Outpatient (BNV) | payer OTHER, SELFPAY | PROVIDERS: Emergency Provider Emergency Medicine; PCP Physician Assistant; Visit Provider Internal Medicine Cardiovascular Disease | DX: R94.31 Abnormal electrocardiogram [ECG] [EKG] (principal); I10 Essential (primary) hypertension | CPT/HCPCS: 93010 ==